=== PATIENT | female | born 1985 | race Hispanic/Latino ===

== ENCOUNTER → 2018-06-09 | Day surgery (SDC) | payer OTHER ==
[~2018-06-09] MED LIST: FENTANYL CITRATE/PF 100MCG/2 ML INJ ONE; METOPROLOL SUCC25 MG PO; MIDAZOLAM HCL 2 MG/2 ML VIAL ONE; PROPOFOL IV EMULSION 10 MG/ML 50 ML VIAL ONE
--- OUTSIDE RECORDS SUMMARY | 2018-06-09 10:49 | XMS REPORT | Summary of Care ---
Author Author Gracie Lam R.N. Unknown Address Unknown Phone Unavailable Care Team Providers Care Prosthetic Dentist Name Role Phone AXEL LARA MD Unavailable Unavailable Unavailable Unavailable Functional Status Name Dates Details Functional status health issues are not documented Status: Name Dates Details Cognitive status health issues are not documented Status: Problems Name Dates Details Irregular bleeding (626.4, N92.6) Status: Active Dysfunctional uterine bleeding (626.8, N93.8) Status: Active Medications Name Dates Details Medications not documented Allergies and Adverse Reactions Name Dates Details No Known Drug Allergies (Allergy) Status: Active Past Medical History Name Dates Details No pertinent past medical history Status: Resolved Procedures Procedure Dates Details [QLH] TSH, 3RD GENERATION Date: 05-Mar-2018 [QLH] T4, FREE Date: 05-Mar-2018 [[facility]H] TESTOSTERONE, TOTAL Date: 05-Mar-2018 [[facility]H] PROLACTIN Date: 05-Mar-2018 History of section Completed Immunization Name Dates Details Immunizations not documented Family History Name Dates Details Family history of hypertension (V17.49, Z82.49) Status: Active Family history of hyperlipidemia (V18.19, Z83.49) Status: Active Name Dates Details No pertinent family history (V49.89, Z78.9) Status: Active Social History Name Dates Details - Status: Name Dates Details Never smoker Vital Signs Date Test Result Details [id number] BP Systolic 142 mm[Hg] Status: Comments: Location: LUE; Position: Sitting BP Diastolic 83 mm[Hg] Status: Comments: Location: LUE; Position: Sitting Weight 166 lb Status: Height 60 in Status: Body Mass Index Calculated 32.42 kg/m2 Status: Body Surface Area Calculated 1.72 m2 Status: Heart Rate 96 /min Status: Results Date Description Value Details Results not documented Plan of Care Name Dates Details Planned Observations Planned Goals not documented Instructions Name Dates Details Instructions not documented Encounters Appointment; DANIELLA CRUZ M.D. Encounter Diagnosis: Problem not documented On: 04-Jan-2018 10:00 Appointment; DAVID ROOT M.D. Encounter Diagnosis: Problem not documented On: 05-Mar-2018 9:10
[2018-06-09 13:30] VITALS: BP 128/83
--- NOTE | 2018-06-09 14:10 | Operative Report ---
DATE OF PROCEDURE: June 09, 2018 REFERRING PHYSICIAN: Dr. Adeola Lara. PROCEDURE PERFORMED: Esophagogastroduodenoscopy with esophageal dilatation and biopsies. INDICATIONS FOR PROCEDURE: Dysphagia, nausea, upper abdominal pain. MEDICATION: Patient was done under MAC. Please see anesthesiologist's note. PROCEDURE: With patient in the left lateral decubitus position, the flexible fiberoptic Olympus gastroscope was introduced into the esophagus under direct visualization without any difficulty. There was some patchy erythema noted in the distal esophagus. There was a mild stricture noted at the GE junction, and that was dilated to size 52-Vincentian Biswas. The scope was then advanced with ease into the stomach. Mucosa overlying the antrum and the body revealed some diffuse erythema and moderate edema, and biopsies were obtained and sent to stain for H. pylori. Pylorus appeared to be of normal contour and shape, was intubated with ease, and the scope was advanced all the way to the 2nd portion of the duodenum. The scope was then withdrawn slowly. Mucosa overlying the proximal 2nd portion and the duodenal bulb appeared to be within normal limits. The scope was then withdrawn back into the stomach and retroflexed, and the mucosa overlying the fundus and the cardia appeared to be within normal limits. The scope was then straightened out. The stomach was decompressed. The scope was subsequently withdrawn. Patient tolerated the procedure well. IMPRESSION: 1. Distal esophagitis. 2. Esophageal stricture at gastroesophageal junction dilated to size 52-Vincentian Biswas. 3. Gastritis biopsied. Biopsies sent to stain for H. pylori. PLAN: Follow up histology. Initiate Protonix 40 mg 1 p.o. q.a.m. a.c. Job#: [id number] EV cc:ADEOLA LARA MD
== END | disposition home or self-care (01) ==
LOC: OR 10:47
PROVIDERS: ATTEND Internal Medicine Gastroenterology
DX: K29.70 Gastritis, unspecified, without bleeding (principal); K22.2 Esophageal obstruction; K20.9 Esophagitis, unspecified; K21.9 Gastro-esophageal reflux disease without esophagitis; I10 Essential (primary) hypertension; E78.5 Hyperlipidemia, unspecified; Z88.8 Allergy status to other drugs, medicaments and biological substances; F41.9 Anxiety disorder, unspecified; Z01.810 Encounter for preprocedural cardiovascular examination; Z68.31 Body mass index [BMI] 31.0-31.9, adult; Z86.2 Personal history of diseases of the blood and blood-forming organs and certain disorders involving the immune mechanism
CPT/HCPCS: 43239; 43450; 81025; 93005; J2250

== ENCOUNTER → 2019-04-12 | Outpatient (CLI) | payer OTHER ==
[~2019-04-12] MED LIST changes: -FENTANYL CITRATE/PF 100MCG/2 ML INJ ONE; -MIDAZOLAM HCL 2 MG/2 ML VIAL ONE; -PROPOFOL IV EMULSION 10 MG/ML 50 ML VIAL ONE
--- NOTE | 2019-04-12 15:57 | Diagnostic Imaging Report ---
Modified barium swallow, 04/12/2019. History: Dysphagia. Fluoro time: 0.8 min. Dose: 4.9 mGy (GM) Technique: Fluoroscopy was performed by division order technician. A radiologist was not present for exam. Fluoroscopic observation and imaging of the oral cavity, oropharynx, and hypopharynx was performed in the lateral projection during swallowing of liquids and solids, administered by speech pathology. See speech pathologist report for findings. Signed by: Fahad Quinn on 04/12/2019 3:54 PM
== END ==
LOC: DX 11:31
PROVIDERS: ATTEND Internal Medicine Gastroenterology
DX: R11.0 Nausea (principal); K29.60 Other gastritis without bleeding
CPT/HCPCS: 74230